=== PATIENT | male | born 1940 | race Two or more races ===

== ENCOUNTER 2017-02-11 08:03 | Outpatient (CLI) | payer OTHER | END 2017-02-11 08:09 | disposition home or self-care (01) | LOC: EKG 08:03 | DX: K40.90 Unilateral inguinal hernia, without obstruction or gangrene, not specified as recurrent (principal); Z01.810 Encounter for preprocedural cardiovascular examination ==

== ENCOUNTER 2017-02-11 08:38 | Outpatient (CLI) | payer OTHER | END 2017-02-11 09:50 | disposition home or self-care (01) | LOC: RAD 08:38 | DX: K40.90 Unilateral inguinal hernia, without obstruction or gangrene, not specified as recurrent (principal); Z01.811 Encounter for preprocedural respiratory examination ==

== ENCOUNTER 2017-02-25 06:15 | Day surgery (SDC) | payer OTHER ==
[~2017-02-25 06:15] MED LIST: METFORMIN HCL850 MG PO; VITAMIN D5000 UNIT PO; XALATAN
== END 2017-02-25 16:30 | disposition home or self-care (01) ==
LOC: CIR.AMB 06:15
DX: K40.90 Unilateral inguinal hernia, without obstruction or gangrene, not specified as recurrent (principal)